=== PATIENT | female | born 1965 | race Caucasian/White ===

== ENCOUNTER → 2019-12-02 09:38 | Outpatient (BNVA) | payer BC, SELFPAY | PROVIDERS: Family Provider Nurse Practitioner Family; PCP Nurse Practitioner Family; Visit Provider Nurse Practitioner Family | DX: I10 Essential (primary) hypertension (principal); M15.9 Polyosteoarthritis, unspecified; E55.9 Vitamin D deficiency, unspecified; E78.2 Mixed hyperlipidemia; L40.9 Psoriasis, unspecified; G62.9 Polyneuropathy, unspecified | CPT/HCPCS: 80053; 80061; 81003; 82306; 82607; 83921; 84439; 84443; 84481; 85025; 85651; 86140; 87077; 87086; 87186 ==

== ENCOUNTER → 2019-12-03 09:38 | Outpatient (BNVA) | payer BC, SELFPAY | PROVIDERS: Family Provider Nurse Practitioner Family; PCP Nurse Practitioner Family; Visit Provider Nurse Practitioner Family | DX: I10 Essential (primary) hypertension (principal); E55.9 Vitamin D deficiency, unspecified; E78.2 Mixed hyperlipidemia | CPT/HCPCS: 83036 ==

== ENCOUNTER → 2019-12-24 10:52 | Outpatient (BNVA) | payer BC, SELFPAY | PROVIDERS: Family Provider Nurse Practitioner Family; PCP Nurse Practitioner Family; Visit Provider Internal Medicine | DX: L40.9 Psoriasis, unspecified (principal); M15.9 Polyosteoarthritis, unspecified; D86.9 Sarcoidosis, unspecified; M32.9 Systemic lupus erythematosus, unspecified; E55.9 Vitamin D deficiency, unspecified | CPT/HCPCS: 99204 ==

== ENCOUNTER 2019-12-25 11:14 | Outpatient (CLI) | payer BC, SELFPAY ==
--- NOTE | 2019-12-25 11:23 | XR_ITS ---
WS: [id number] Left hand, 2 views, 12/25/2019 Clinical Data: hand pain Comparison: None. Findings: No fractures or dislocations are seen. The soft tissues are unremarkable. The joint spaces are normal The patient's ring obscures minimal detail on the midportion of the left fourth proximal phalanx. XR/XR hand LT 2V [id number] Impression: Negative left hand.
--- NOTE | 2019-12-25 11:23 | XR_ITS ---
WS: [id number] Sacroiliac joints, 3 views, 12/25/2019 Clinical Data: SI pain Comparison: None. Findings: The SI joints are normal in width. No erosion, sclerosis or destruction is seen. There are no fractur es or dislocations. The adjacent visualized pelvis is unremarkable. The right hip is normal. There is cystic change in th e acetabulum of the left hip with narrowing and spurring of the left femoral head. XR/XR sacroiliac jts m 3V [id number] Impression: Negative SI joints.
--- NOTE | 2019-12-25 11:23 | XR_ITS ---
WS: [id number] Right hand, 2 views, 12/25/2019 Clinical Data: hand pain Comparison: None. Findings: No fractures or dislocations are seen. The soft tissues are unremarkable. The joint space s are normal No periarticular demineralization or calcifications are seen. XR/XR hand RT 2V [id number] Impression: Negative right hand.
== END 2019-12-25 11:15 | disposition home or self-care (01) ==
LOC: RADWPI 11:18
PROVIDERS: Family Provider Nurse Practitioner Family; PCP Nurse Practitioner Family; Visit Provider Internal Medicine
DX: L40.9 Psoriasis, unspecified (principal); M79.642 Pain in left hand; Z11.59 Encounter for screening for other viral diseases; M79.641 Pain in right hand; Z11.1 Encounter for screening for respiratory tuberculosis; D86.9 Sarcoidosis, unspecified; M53.3 Sacrococcygeal disorders, not elsewhere classified; M32.9 Systemic lupus erythematosus, unspecified
CPT/HCPCS: 72202; 73120; 80053; 83540; 86480; 86704; 86803; 86812; 87340

== ENCOUNTER → 2020-01-14 11:23 | Outpatient (BNVA) | payer BC, SELFPAY | PROVIDERS: Family Provider Nurse Practitioner Family; PCP Nurse Practitioner Family; Visit Provider Nurse Practitioner Family | DX: S83.91XA Sprain of unspecified site of right knee, initial encounter (principal); M17.11 Unilateral primary osteoarthritis, right knee | CPT/HCPCS: 73562 ==

== ENCOUNTER → 2020-03-06 12:13 | Outpatient (BNVA) | payer BC, SELFPAY | PROVIDERS: Family Provider Nurse Practitioner Family; PCP Nurse Practitioner Family | DX: Z20.828 Contact with and (suspected) exposure to other viral communicable diseases (principal) | CPT/HCPCS: 87635 ==

== ENCOUNTER → 2020-03-21 15:00 | Outpatient (BNVA) | payer BC, SELFPAY | PROVIDERS: Family Provider Nurse Practitioner Family; PCP Nurse Practitioner Family; Visit Provider Internal Medicine | DX: L40.9 Psoriasis, unspecified (principal); M15.9 Polyosteoarthritis, unspecified; Z79.899 Other long term (current) drug therapy; R74.01 Elevation of levels of liver transaminase levels; E55.9 Vitamin D deficiency, unspecified | CPT/HCPCS: 99214 ==

== ENCOUNTER → 2020-07-22 10:47 | Outpatient (BNVA) | payer BC, SELFPAY | PROVIDERS: Family Provider Nurse Practitioner Family; PCP Nurse Practitioner Family; Visit Provider Internal Medicine | DX: L40.9 Psoriasis, unspecified (principal); M25.559 Pain in unspecified hip | CPT/HCPCS: 99213; 99214 ==

== ENCOUNTER → 2020-08-19 10:00 | Outpatient (BNVA) | payer BC, SELFPAY | PROVIDERS: Family Provider Nurse Practitioner Family; PCP Nurse Practitioner Family; Referring Provider Internal Medicine; Visit Provider Anesthesiology Pain Medicine | DX: G89.29 Other chronic pain (principal); M25.551 Pain in right hip; M25.761 Osteophyte, right knee; M15.9 Polyosteoarthritis, unspecified; Z79.891 Long term (current) use of opiate analgesic | CPT/HCPCS: 99204 ==

== ENCOUNTER → 2020-11-24 12:09 | Outpatient (BNVA) | payer BC, SELFPAY | PROVIDERS: Family Provider Nurse Practitioner Family; PCP Nurse Practitioner Family; Visit Provider Nurse Practitioner Family | DX: I10 Essential (primary) hypertension (principal); Z79.899 Other long term (current) drug therapy; E55.9 Vitamin D deficiency, unspecified; E78.2 Mixed hyperlipidemia | CPT/HCPCS: 80053; 80061; 81003; 82306; 83036; 84443; 85025; 85651; 86140 ==

== ENCOUNTER → 2021-01-03 13:45 | Outpatient (BNVA) | payer BC, SELFPAY | PROVIDERS: Family Provider Nurse Practitioner Family; PCP Nurse Practitioner Family; Visit Provider Internal Medicine | DX: L40.9 Psoriasis, unspecified (principal); M15.9 Polyosteoarthritis, unspecified; E55.9 Vitamin D deficiency, unspecified | CPT/HCPCS: 99214 ==

== ENCOUNTER → 2021-07-06 11:14 | Outpatient (BNVA) | payer BC, SELFPAY | PROVIDERS: Family Provider Nurse Practitioner Family; PCP Nurse Practitioner Family; Visit Provider Internal Medicine | DX: L40.9 Psoriasis, unspecified (principal); Z79.899 Other long term (current) drug therapy | CPT/HCPCS: 80053; 85025; 85651; 86140 ==

== ENCOUNTER → 2021-09-18 00:01 | Outpatient (BNVA) | payer BC, SELFPAY | PROVIDERS: Family Provider Nurse Practitioner Family; PCP Nurse Practitioner Family; Visit Provider Anesthesiology Pain Medicine | DX: M16.9 Osteoarthritis of hip, unspecified (principal); M25.559 Pain in unspecified hip | CPT/HCPCS: 77002 ==

== ENCOUNTER → 2021-10-02 09:02 | Outpatient (BNVA) | payer BC, SELFPAY | PROVIDERS: Family Provider Nurse Practitioner Family; PCP Nurse Practitioner Family; Visit Provider Anesthesiology Pain Medicine | DX: M17.0 Bilateral primary osteoarthritis of knee (principal) | CPT/HCPCS: 73560 ==

== ENCOUNTER → 2021-11-23 09:50 | Outpatient (BNVA) | payer BC, SELFPAY | PROVIDERS: Family Provider Nurse Practitioner Family; PCP Nurse Practitioner Family; Visit Provider Internal Medicine | DX: M25.761 Osteophyte, right knee (principal); L40.9 Psoriasis, unspecified; M15.9 Polyosteoarthritis, unspecified; E55.9 Vitamin D deficiency, unspecified; Z79.899 Other long term (current) drug therapy | CPT/HCPCS: 80053; 85025; 85651; 86140 ==

== ENCOUNTER → 2022-05-31 12:21 | Outpatient (BNVA) | payer BC, SELFPAY | PROVIDERS: Family Provider Nurse Practitioner Family; PCP Nurse Practitioner Family; Visit Provider Internal Medicine | DX: M15.9 Polyosteoarthritis, unspecified (principal) | CPT/HCPCS: 36415; 80053; 85025; 85651; 86140 ==

== ENCOUNTER → 2023-04-15 10:53 | Outpatient (BNVA) | payer BC, SELFPAY | PROVIDERS: Family Provider Nurse Practitioner Family; PCP Nurse Practitioner; Visit Provider Nurse Practitioner Family | DX: I10 Essential (primary) hypertension (principal); E78.2 Mixed hyperlipidemia; M15.9 Polyosteoarthritis, unspecified; L40.9 Psoriasis, unspecified; Z79.899 Other long term (current) drug therapy | CPT/HCPCS: 80053; 80061; 81003; 83036; 84439; 84443; 84481; 85025; 85651; 86140 ==